=== PATIENT | female | born 1930 | race Hispanic/Latino ===

== ENCOUNTER 2016-11-27 08:41 | Outpatient (CLI) | payer MEDICARE, MEDICAID ==
[2016-11-27 09:22] LABS: #Basophils 0.1 thou/uL (0.0-0.2); #Eosinphils 0.2 thou/uL (0.0-0.7); #Lymphocytes 2.1 thou/uL (1.20-3.40); #Monocytes 0.4 thou/uL (0.11-0.59); #Neutrophils 2.7 thou/uL (1.40-6.50); %Basophils 1.3 % (0.0-1.0); %Eosinophils 3.8 % (0.0-10.0); %Monocytes 7.5 % (0.0-10.0); Hematocrit 37.2 % (36.0-47.0); Mean Platelet Volume 7.9 fL (7.4-10.4); Red Blood Cell (RBC) Count 3.69 mill/uL (4.20-5.40); White Blood Cell (WBC) Count 5.6 thou/uL (4.8-10.8)
[2016-11-27 09:34] LABS: Hemoglobin A1c 5.4 % (4.0-6.0)
[2016-11-27 09:39] LABS: ALT (SGPT) 13 U/L (0-55); AST (SGOT) 17 U/L (5-34); Alkaline Phosphatase 62 U/L (40-150); Anion Gap 11 mmol/L (10-20); BUN (Urea Nitrogen) 35 mg/dL (9.8-20.1); Bilirubin Negative (Negative); Bilirubin, Total 0.3 mg/dL (0.2-1.2); Blood, Urine Moderate (Negative); Calc. Creatinine Clearance 0 mL/min (70-130); Calcium 9.2 mg/dL (7.8-10.44); Carbon Dioxide 23 mmol/L (23-31); Chloride 110 mmol/L (98-107); Estimated GFR-MDRD 29; Glucose, Urine (Dipstick) Negative (Negative); Ketone, Urine Negative (Negative); LDL Cholesterol, Calculated 97 mg/dL; Nitrite Negative (Negative); Protein, Total 6.7 g/dL (5.8-8.1); Protein, Urine (Dipstick) > or equal to 300 mg/dL (Neg-Trace); Urobilinogen 0.2 mg/dL (0.2-1.0)
[2016-11-27 09:41] LABS: Albumin - Urine 150 mg/L (< 20 mg/L); Albumin/Creatinine Ratio GREATER THAN 300 mg/g (< 30 mg/g); Creatinine, Urine 50 mg/dL (10-300mg/dL)
[2016-11-27 09:52] LABS: RBC/HPF 21-50 HPF (0-3)
[2016-11-27 09:53] LABS: Bacteria/HPF 3+ HPF (None Seen); Squamous Epithelial 0-3 HPF (0-3); WBC/HPF 21-50 HPF (0-3)
--- NOTE | 2016-11-27 10:09 | RAD ---
THREE VIEWS LUMBAR SPINE: Date: 11-27-16 Comparison: None available. History: Severe low back pain. FINDINGS: Bilateral double J ureteral stents are present. There is atherosclerotic calcification of the abdominal aorta. Surgical clips in the right upper qu adrant suggest prior cholecystectomy. There is minimal anterior wedging of T12 vertebral body which may signify age indeterminate fracture or physiologic wedging. There is mild anterolisthesis at L4-5 measuring 4-5 mm. At T12-L1, L1-2, and L2-3 there is disc space narrowing, degenerative endplate change, and anterior osteophyte formation, most prominent at L2-3. There is facet hypertrophy at L4-5 and L5-S1. There is mild focal levoscoliosis of the upper lumbar spine. IMPRESSION: Multilevel degenerative change. Age indeterminate mild anterior wedge compression fracture of T12, likely old. POS: MIGUELITO
== END 2016-11-27 08:42 | disposition home or self-care (01) ==
LOC: NAV LAB 08:41
PROVIDERS: ATTEND Family Medicine
DX: E78.5 Hyperlipidemia, unspecified (principal); M47.817 Spondylosis without myelopathy or radiculopathy, lumbosacral region; E11.9 Type 2 diabetes mellitus without complications
CPT/HCPCS: 36415; 72100; 80053; 80061; 81001; 82044; 82570; 83036; 84443; 85025

== ENCOUNTER 2017-03-27 21:07 | Outpatient (CLI) | payer MEDICARE, MEDICAID ==
--- NOTE | 2017-03-27 22:20 | RAD ---
FRONTAL AND LATERAL IMAGING THORACIC SPINE 03/27/17 HISTORY: Bilateral rib pain, mid thoracic pain. FINDINGS: Incompletely visualized bilateral ureteral stents are present. There is a S-shaped scoliosis involvi ng the thoracolumbar junction. There are postoperative clips in the right upper quadrant. The bones appear demineralized. There is atherosclerotic calcification of the aortic arch. No obvious fracture. No anterolisthesis or retrolisthesis. Mild anterior wedging of numerous thoraci c vertebral bodies are noted with no discrete fracture deformity seen. IMPRESSION: Demineralized bones with mild wedging of numerous thoracic vertebral bodies. None of the thoracic ve rtebral bodies demonstrate findings suspicious for obvious acute fracture. If symptoms persists, MRI is advised. POS: MIGUELITO
== END 2017-03-27 21:08 | disposition home or self-care (01) ==
LOC: NAV RAD 21:07
PROVIDERS: ATTEND Family Medicine
DX: M54.14 Radiculopathy, thoracic region (principal); M80.88XD Other osteoporosis with current pathological fracture, vertebra(e), subsequent encounter for fracture with routine healing
CPT/HCPCS: 72070

== ENCOUNTER 2017-04-09 09:40 | Outpatient (CLI) | payer MEDICARE, MEDICAID ==
[2017-04-09 10:52] LABS: #Eosinphils 0.3 thou/uL (0.0-0.7); #Monocytes 0.5 thou/uL (0.11-0.59); #Neutrophils 4.4 thou/uL (1.40-6.50); %Basophils 0.7 % (0.0-1.0); %Eosinophils 4.5 % (0.0-10.0); %Lymphocytes 27.9 % (21.0-51.0); %Monocytes 6.6 % (0.0-10.0); %Neutrophils 60.4 % (42.0-75.0); Hemoglobin 10.6 g/dL (12.0-16.0); Mean Corpuscular Hemoglobin 31.8 pg (27.0-31.0); Mean Corpuscular Volume 99.4 fl (81.0-99.0); Mean Platelet Volume 7.7 fL (7.4-10.4); Platelet Count 172 thou/uL (130-400); RBC Distribution Width 12.5 % (11.5-14.5); Red Blood Cell (RBC) Count 3.35 mill/uL (4.20-5.40); White Blood Cell (WBC) Count 7.2 thou/uL (4.8-10.8)
[2017-04-09 11:08] LABS: Anion Gap 17 mmol/L (10-20); BUN (Urea Nitrogen) 30 mg/dL (9.8-20.1); Calc. Creatinine Clearance 0 mL/min (70-130); Calcium 9.1 mg/dL (7.8-10.44); Carbon Dioxide 20 mmol/L (23-31); Chloride 106 mmol/L (98-107); Estimated GFR-MDRD 33; Glucose 127 mg/dL (83-110); Phosphorus 4.3 mg/dL (2.3-4.7); Potassium 4.3 mmol/L (3.5-5.1); Sodium 139 mmol/L (136-145)
== END 2017-04-09 09:41 | disposition home or self-care (01) ==
LOC: NAV LAB 09:40
PROVIDERS: ATTEND Internal Medicine Nephrology
DX: N18.4 Chronic kidney disease, stage 4 (severe) (principal)
CPT/HCPCS: 36415; 80048; 83970; 84100; 85025

== ENCOUNTER 2017-05-27 12:05 | Outpatient (CLI) | payer MEDICARE, MEDICAID ==
[2017-05-27 14:25] LABS: Bilirubin Negative (Negative); Blood, Urine Large (Negative); Clarity Clear (Clear); Glucose, Urine (Dipstick) Negative (Negative); Leukocyte Large (Negative); Nitrite Negative (Negative); Protein, Urine (Dipstick) 100 mg/dL (Neg-Trace); Specific Gravity, Urine 1.015 (1.005-1.030); Urobilinogen 0.2 mg/dL (0.2-1.0); pH, Urine 8.5 (5.0-9.0)
[2017-05-27 18:27] LABS: Bacteria/HPF 3+ HPF (None Seen); Squamous Epithelial 0-3 HPF (0-3)
== END 2017-05-27 12:06 ==
LOC: NAV LAB 12:05
PROVIDERS: ATTEND Urology
DX: R39.89 Other symptoms and signs involving the genitourinary system (principal)
CPT/HCPCS: 81001; 87086

== ENCOUNTER 2017-05-28 19:18 | Emergency (ER) | payer MEDICARE, MEDICAID ==
--- NOTE | 2017-05-28 21:43 | RAD ---
AP VIEW CHEST SUPINE AND UPRIGHT VIEWS ABDOMEN 05/28/17 HISTORY: Lower abdominal pain. AP view chest as well as supine and upright views abdomen obtained. There is calcification and ectasia of the aorta. The lungs are well aerated. No evidence of acute in trathoracic abnormality seen. Two views abdomen demonstrate bilateral ureteral stents in place. Surgical clips seen in the right u pper quadrant of the abdomen. There are surgical hardware also seen over the right and left pubic sy mphysis. Radiopaque wires seen over the mid abdomen. S-shaped thoracolumbar scoliosis is seen. Calcification of the abdominal aorta is noted. Abdominal gas pattern is nonspecific. No evidence of obstruction or ileus seen. No dilated loops of bowel seen. No evidence of free intraperitoneal air seen. IMPRESSION: 1. Scoliosis of the thoracolumbar spine. 2. Postsurgical changes. 3. Atherosclerosis of the abdominal aorta. POS: TERENCE
== END 2017-05-28 22:04 | disposition home or self-care (01) ==
LOC: NAV ERS 19:18
DX: K59.00 Constipation, unspecified (principal); I25.10 Atherosclerotic heart disease of native coronary artery without angina pectoris; E11.9 Type 2 diabetes mellitus without complications; E03.9 Hypothyroidism, unspecified; I10 Essential (primary) hypertension; M19.90 Unspecified osteoarthritis, unspecified site; F41.9 Anxiety disorder, unspecified; F32.9 Major depressive disorder, single episode, unspecified; Z79.899 Other long term (current) drug therapy; Z79.82 Long term (current) use of aspirin
CPT/HCPCS: 74022

== ENCOUNTER 2017-06-11 09:16 | Outpatient (CLI) | payer MEDICARE, MEDICAID ==
[2017-06-11 18:35] LABS: Bilirubin Negative (Negative); Blood, Urine Large (Negative); Clarity Slightly Cloudy (Clear); Glucose, Urine (Dipstick) Negative (Negative); Leukocyte Large (Negative); Nitrite Positive (Negative); Protein, Urine (Dipstick) 100 mg/dL (Neg-Trace); Specific Gravity, Urine 1.015 (1.005-1.030); Urobilinogen 0.2 mg/dL (0.2-1.0)
[2017-06-11 18:36] LABS: pH, Urine Greater/Equal 9.0 (5.0-9.0)
[2017-06-11 20:15] LABS: Bacteria/HPF 3+ HPF (None Seen); RBC/HPF GREATER THAN 50-TNTC HPF (0-3); Squamous Epithelial 0-3 HPF (0-3); WBC/HPF 0-3 HPF (0-3)
== END 2017-06-11 09:17 | disposition home or self-care (01) ==
LOC: NAV LABSP 09:16
PROVIDERS: ATTEND Urology
DX: Z01.818 Encounter for other preprocedural examination (principal); N13.30 Unspecified hydronephrosis; N39.0 Urinary tract infection, site not specified
CPT/HCPCS: 81001; 87077; 87086; 87186

== ENCOUNTER 2018-06-16 01:32 | Emergency (ER) | payer MEDICARE, MEDICAID ==
[2018-06-16 02:31] LABS: Bilirubin Negative (Negative); Blood, Urine Large (Negative); Clarity Cloudy (Clear); Glucose, Urine (Dipstick) Negative (Negative); Leukocyte Large (Negative); Nitrite Positive (Negative); Protein, Urine (Dipstick) 100 mg/dL (Neg-Trace); Urobilinogen 0.2 mg/dL (0.2-1.0)
[2018-06-16 02:34] LABS: RBC/HPF 21-50 HPF (0-3)
[2018-06-16 02:35] LABS: Bacteria/HPF 4+ HPF (None Seen); WBC/HPF 21-50 HPF (0-3)
== END 2018-06-16 03:38 | disposition home or self-care (01) ==
LOC: NAV ERS 01:32
DX: N30.80 Other cystitis without hematuria (principal); E11.9 Type 2 diabetes mellitus without complications; E03.9 Hypothyroidism, unspecified; I25.10 Atherosclerotic heart disease of native coronary artery without angina pectoris; I10 Essential (primary) hypertension; M19.90 Unspecified osteoarthritis, unspecified site; F41.9 Anxiety disorder, unspecified; F32.9 Major depressive disorder, single episode, unspecified
CPT/HCPCS: 51702; 51798; 81003; 81015; 87086

== ENCOUNTER 2019-02-21 20:09 | Emergency (ER) | payer MEDICARE, MEDICAID ==
[2019-02-21 20:49] LABS: #Basophils 0.1 thou/uL (0.0-0.2); #Eosinphils 0.4 thou/uL (0.0-0.7); #Lymphocytes 2.1 thou/uL (1.20-3.40); #Monocytes 0.5 thou/uL (0.11-0.59); #Neutrophils 2.1 thou/uL (1.40-6.50); %Basophils 1.2 % (0.0-1.0); %Eosinophils 8.7 % (0.0-10.0); %Lymphocytes 40.1 % (21.0-51.0); %Monocytes 10.2 % (0.0-10.0); %Neutrophils 39.8 % (42.0-75.0); Hemoglobin 10.4 g/dL (12.0-16.0); Mean Corpuscular HGB CONC 31.4 g/dL (32.0-36.0); Mean Corpuscular Hemoglobin 31.4 pg (27.0-31.0); Mean Corpuscular Volume 99.9 fL (78.0-98.0); Platelet Count 128 thou/uL (130-400); RBC Distribution Width 13.6 % (11.5-14.5); Red Blood Cell (RBC) Count 3.31 mill/uL (4.20-5.40); White Blood Cell (WBC) Count 5.2 thou/uL (4.8-10.8)
[2019-02-21] MEDS ORDERED: Aspirin Chewable 81 MG TAB ONE (21:10)
[2019-02-21 21:14] LABS: ALT (SGPT) 18 U/L (8-55); AST (SGOT) 29 U/L (5-34); Alkaline Phosphatase 72 U/L (40-150); Anion Gap 14 mmol/L (10-20); BUN (Urea Nitrogen) 43 mg/dL (9.8-20.1); Bilirubin, Total 0.2 mg/dL (0.2-1.2); Calc. Creatinine Clearance 0 mL/min (70-130); Calcium 9.4 mg/dL (7.8-10.44); Carbon Dioxide 21 mmol/L (23-31); Chloride 109 mmol/L (98-107); Estimated GFR-MDRD 27; Glucose 97 mg/dL (83-110); Potassium 4.6 mmol/L (3.5-5.1); Sodium 139 mmol/L (136-145)
--- NOTE | 2019-02-21 21:19 | RAD ---
TWO VIEWS CHEST: 02/21/19 PROVIDED CLINICAL HISTORY: Chest pain. FINDINGS: The lateral view is limited as the patient is unable to raise her arms. Cardiac and mediastinal silho uette is unchanged in appearance. Vascular calcifications noted involving the aortic arch. No focal c onsolidation, pleural fluid or pneumothorax apparent. IMPRESSION: No evidence for an acute cardiopulmonary process. POS: AJ
== END 2019-02-21 21:55 | disposition home or self-care (01) ==
LOC: NAV ERS 20:09
DX: M94.0 Chondrocostal junction syndrome [Tietze] (principal); K21.9 Gastro-esophageal reflux disease without esophagitis; F41.9 Anxiety disorder, unspecified; F32.9 Major depressive disorder, single episode, unspecified; I25.10 Atherosclerotic heart disease of native coronary artery without angina pectoris; E11.9 Type 2 diabetes mellitus without complications; E03.9 Hypothyroidism, unspecified; I10 Essential (primary) hypertension; Z79.899 Other long term (current) drug therapy; Z79.82 Long term (current) use of aspirin
CPT/HCPCS: 36415; 71046; 80053; 84484; 85025; 93005

== ENCOUNTER 2019-03-26 18:35 | Emergency (ER) | payer MEDICARE, MEDICAID ==
[2019-03-26] MEDS ORDERED: Mag-Al Plus 1200 MG/1200 MG/120 MG/30 ML UDCUP ONE (19:25)
[2019-03-26] MEDS ORDERED: Lidocaine Viscous Sol 2% 15 ml UD Cup ONE (19:25)
== END 2019-03-26 19:40 | disposition home or self-care (01) ==
LOC: NAV ERS 18:35
DX: K12.1 Other forms of stomatitis (principal); B97.89 Other viral agents as the cause of diseases classified elsewhere; K21.9 Gastro-esophageal reflux disease without esophagitis; I25.10 Atherosclerotic heart disease of native coronary artery without angina pectoris; E03.9 Hypothyroidism, unspecified; I10 Essential (primary) hypertension; F41.9 Anxiety disorder, unspecified; F32.9 Major depressive disorder, single episode, unspecified; Z79.82 Long term (current) use of aspirin; Z79.899 Other long term (current) drug therapy
CPT/HCPCS: 99282

== ENCOUNTER 2019-03-31 19:42 | Emergency (ER) | payer MEDICARE, MEDICAID ==
[2019-03-31] MEDS ORDERED: Mag-Al Plus 1200 MG/1200 MG/120 MG/30 ML UDCUP ONE (20:21)
== END 2019-03-31 20:40 | disposition home or self-care (01) ==
LOC: NAV ERS 19:42
DX: J02.9 Acute pharyngitis, unspecified (principal); K21.9 Gastro-esophageal reflux disease without esophagitis; E11.9 Type 2 diabetes mellitus without complications; I10 Essential (primary) hypertension; F41.9 Anxiety disorder, unspecified; F32.9 Major depressive disorder, single episode, unspecified; Z79.899 Other long term (current) drug therapy
CPT/HCPCS: 99282

== ENCOUNTER 2019-06-22 12:55 | Outpatient (CLI) | payer MEDICARE, MEDICAID ==
--- NOTE | 2019-06-22 13:16 | RAD ---
XR Lumbar Spine 2 Or 3 View History: Spondylosis of the spine Comparison: CT April 25, 2019 Findings: Similar appearance of the bilateral double-J ureteral stents. Severe degenerative disease i n the lumbar spine from L1-L4 with degenerative disc space height loss, circumferential disc osteophyte complexes, and levoscoliosis. Moderate bilateral SI joint degenerative disease as well as pubic symphysis degeneration. There is also severe degenerative disc space height loss at L5/S1 with 2 mm anterolisthesis. Severe f acet arthropathy throughout the lumbar spine. Narrowing of the interspinous space at L4-L5. No abnormal calcifications projecting over the renal shadows. 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
== END 2019-06-22 12:56 | disposition home or self-care (01) ==
LOC: NAV RAD 12:55
PROVIDERS: ATTEND Family Medicine
DX: M47.817 Spondylosis without myelopathy or radiculopathy, lumbosacral region (principal)
CPT/HCPCS: 72100

== ENCOUNTER 2019-09-06 03:39 | Emergency (ER) | payer MEDICARE, MEDICAID | END 2019-09-06 04:20 | disposition home or self-care (01) | LOC: NAV ERS 03:39 | DX: M54.6 Pain in thoracic spine (principal); E11.9 Type 2 diabetes mellitus without complications; E03.9 Hypothyroidism, unspecified; F32.9 Major depressive disorder, single episode, unspecified; F41.9 Anxiety disorder, unspecified; I25.10 Atherosclerotic heart disease of native coronary artery without angina pectoris; I10 Essential (primary) hypertension; M19.90 Unspecified osteoarthritis, unspecified site; N28.9 Disorder of kidney and ureter, unspecified; Z79.82 Long term (current) use of aspirin; Z79.899 Other long term (current) drug therapy | CPT/HCPCS: 99281 ==

== ENCOUNTER 2020-10-21 09:07 | Outpatient (CLI) | payer MEDICARE, MEDICAID ==
--- NOTE | 2020-10-21 10:44 | RAD ---
XR Thoracic Spine 2 View History: Back pain Comparison: CT August 26, 2020 Findings: Mild S-shaped scoliosis thoracolumbar spine. No further height loss of the thoracic spine c ompression deformities. Left double-J ureteral stent and right double-J ureteral stents are again seen. Scarring is present throughout the lower lobes. Impression: No further height loss of the thoracic compression fractures.
== END 2020-10-21 09:08 | disposition home or self-care (01) ==
LOC: NAV RAD 09:07
PROVIDERS: ATTEND Neurological Surgery
DX: S22.059D Unspecified fracture of T5-T6 vertebra, subsequent encounter for fracture with routine healing (principal); S22.089D Unspecified fracture of T11-T12 vertebra, subsequent encounter for fracture with routine healing
CPT/HCPCS: 72070